=== PATIENT | female | born 1990 | race Hispanic/Latino ===

== ENCOUNTER 2020-05-10 21:00 | Emergency (ER) | payer OTHER, SELFPAY ==
--- OUTSIDE RECORDS SUMMARY | 2020-05-10 21:02 | XMS REPORT | Continuity of Care Document ---
:1990 Author Organization [facility] t Address [address] [place] [address] Care Team Providers Name Role Phone Virgen Willis DO Attending Clinician Doctor Unassigned, Name Attending Clinician Unavailable Visit, Nurse Attending Clinician Unavailable Jemal Rachel MD Attending Clinician Lazaro ANDERSONP, N Attending Clinician Rohan HOWARD Attending Clinician Caleb HOGUE, R Attending Clinician Lionel HOWARD Attending Clinician Wilder HOWARD M Attending Clinician Lab Attending Clinician Unavailable Jemal Rachel MD Admitting Clinician Rohan HOWARD Admitting Clinician Cory Hdz MD Admitting Clinician Problems This patient has no known problems. Allergies, Adverse Reactions, Alerts This patient has no known allergies or adverse reactions. Medications This patient has no known medications. Procedures This patient has no known procedures. Encounters Start End Encounter Admission Attending Care Care Encounter Source Date/Time Date/Time Type Type Clinicians Facility Department ID 2020-05-09 2020-05-09 Emergency Lazaro [facility] [id number] [id number] 08:57:00 09:51:00 Virgen Lambert 350.1.13.10 [place] 4.2.7.2.686 [place] [id number] 2020-05-09 2020-05-09 Orders Doctor BRYANNA [id number] [id number] 00:00:00 00:00:00 Only Unassigned, HUNG 350.1.13.10 [place] [facility] 4.2.7.2.686 [id number] 2020-05-08 2020-05-08 Nurse Visit, [facility] 1.2.840.114 [id number] 08:47:39 09:13:51 Visit [facility] [employer] 350.1.13.10 Nurse [facility] 4.2.7.2.686 MATER[place] [id number] & CHILD 107 [facility] 2020-05-05 2020-05-05 Hospital BRYANNA Rachel [id number] 16:05:00 17:30:00 Encounter Oscar PERSAUD 350.1.13.10 [place] 4.2.7.2.686 [id number] 2020-05-05 2020-05-05 Nurse Visit, [facility] 1.2.840.114 [id number] 10:54:37 11:22:44 Visit Rubén-[facility] [employer]NER OPERATOR 350.1.13.10 Nurse [facility] 4.2.7.2.686 MATERNAL [id number] & CHILD 107 [facility] 2020-05-04 2020-05-04 Telephone EVON Willis 1.2.840.114 [id number] 00:00:00 00:00:00 Miladys Moe [employer]NER OPERATOR 350.1.13.10 REGIONAL 4.2.7.2.686 MATERNAL [id number] & CHILD 107 [facility] 2020-05-02 2020-05-02 [facility] Mendez Madrigal 1.2.840.114 [id number] 15:14:00 16:53:00 Encounter HUNG 350.1.13.10 [place] 4.2.7.2.686 [id number] 2020-04-30 2020-04-30 Telephone Caleb DCKIM [id number] [id number] 00:00:00 00:00:00 Swethaa R [employer]NER OPERATOR 350.1.13.10 [facility] 4.2.7.2.686 MATERNAL [id number] & CHILD 107 [facility] 2020-04-28 2020-04-29 Hospital Wen Flowers 1.2.840.11 [id number] 07:16:00 19:11:00 Encounter Wilder Marie Cory PERSAUD [address].13.[address]686 [id number] 2020-04-28 2020-04-28 Orders Doctor BRYANNA 1.2.840.114 [id number] 00:00:00 00:00:00 Only Unassigned, HUNG 350.1.13.10 [place] [address].2.7.2.686 [id number] 2020-04-23 2020-04-23 [facility] [id number] 10:51:19 11:22:19 Miladys N [employer]NER OPERATOR 350.1.13.10 Visit [facility] 4.2.7.2.686 MATERNAL [id number] & CHILD 107 [facility] 2020-04-16 2020-04-16 [facility] 1.2.387.136 [id number] 15:47:04 16:17:47 Miladys N [employer]NER OPERATOR 350.1.13.10 Visit REGIONAL 4.2.7.2.686 MATERNAL [id number] & CHILD 107 [facility] 2020-04-13 2020-04-13 [facility] 1.2.840.114 [id number] 00:00:00 00:00:00 Miladys N [employer] OWNER OPERATOR 350.1.13.10 REGIONAL 4.2.7.2.686 MATERNAL [id number] & CHILD 107 [facility] 2020-04-10 2020-04-10 Laboratory Lab, [facility] 1.2.840.114 [id number] 12:46:10 15:59:53 Only Ang-Rmchp [employer] OWNER OPERATOR 350.1.13.10 REGIONAL 4.2.7.2.686 MATERNAL [id number] & CHILD 107 [facility] 2020-04-10 2020-04-10 Telephone EVON Willis 1.2.840.114 [id number] 00:00:00 00:00:00 Miladys Moe [employer]NER OPERATOR 350.1.13.10 REGIONAL 4.2.7.2.686 MATERNAL [id number] & CHILD 107 [facility] 2020-04-09 2020-04-09 Routine EVON Willis [id number] 08:00:09 08:37:59 Miladys N [employer] OWNER OPERATOR 350.1.13.10 Visit REGIONAL 4.2.7.2.686 MATERNAL [id number] & CHILD 107 [facility] 2020-04-02 2020-04-02 Abstract EVON Willis 1.2.840.114 [id number] 00:00:00 00:00:00 Miladys Moe [employer] OWNER OPERATOR 350.1.13.10 REGIONAL 4.2.7.2.686 MATERNAL [id number] & CHILD 107 [facility] 2020-04-02 2020-04-02 Orders Doctor BRYANNA 1.2.840.114 [id number] 00:00:00 00:00:00 Only Unassigned, HUNG 350.1.13.10 [place] [facility] 4.2.7.2.686 [id number] Results This patient has no known results.
[2020-05-10 21:59] LABS: Absolute Lymphocytes (CBC) 1.4 K/uL (0.7-4.9); Basophils % 0.4 % (0-1.3); Hematocrit 37.9 % (36.0-45.0); MPV 8.6 fL (7.6-11.3); RBC Red Blood Cell Count 4.25 M/uL (3.86-4.86)
[2020-05-10] MEDS ORDERED: MORPHINE 4 MG/ML SYR ONE (22:08)
[2020-05-10] MEDS ORDERED: NA CHLORIDE 0.9% 500 ML ONE (22:08)
[2020-05-10] MEDS ORDERED: ONDANSETRON 4 MG/2 ML VIAL ONE (22:08)
[2020-05-10 22:13] LABS: ALT/SGPT 22 U/L (12-78); AST/SGOT 13 U/L (15-37); Albumin 3.2 g/dL (3.4-5.0); Alkaline Phosphatase 94 U/L (45-117); BUN Blood Urea Nitrogen 19 mg/dL (7-18); Bicarbonate 21 mmol/L (21-32); Bilirubin Direct 0.2 mg/dL (0-0.2); Bilirubin Total 0.5 mg/dL (0.2-1.0); Glucose Level 105 mg/dL (74-106); Lipase 185 U/L (73-393); Potassium 3.9 mmol/L (3.5-5.1); Protein, Total 7.6 g/dL (6.4-8.2); Sodium Level 138 mmol/L (136-145)
--- NOTE | 2020-05-10 22:20 | EDPHYS ---
Physician Documentation [facility] Name: Kristin Dutta Age: 30 yrs Sex: Female : 1990 Arrival Date: 05/10/2020 Time: 21:09 Bed 20 Private MD: ED Physician Horacio Robertson HPI: 05/10 21:53 This 30 yrs old Female presents to ER via Wheelchair with complaints of Wound mh7 Check. 21:56 Patient presents to ED for recheck of: c section. The affected area is on the lower mh7 abdomen. Previous treatment: The patient was initially treated 12 day(s) ago, the care was rendered at [facility], Treatment type: The patient's original treatment included sutures, Previous recheck: few days ago. Progress: The patient reports increased dehiscence . The patient has been recently seen by a physician: [facility]. States that she had a c section 12 days ago at [facility]. States that wound has developed small areas of opening but tonight opened completely and bowel protrusion. Denies abdominal pain, vomiting, fever.. FAMILY THERAPIST: 22:02 LMP N/A - Recent rv Historical: - Allergies: 21:14 No Known Allergies; ll1 - PMHx: 21:14 Asthma; ll1 - PSHx: 21:14 ; Cholecystectomy; ll1 - Immunization history:: Flu vaccine is up to date. - Social history:: Smoking status: Patient denies any tobacco usage or history of. ROS: 21:56 Constitutional: Negative for fever, chills, and weight loss, Eyes: Negative for injury, mh7 pain, redness, and discharge, ENT: Negative for injury, pain, and discharge, Neck: Negative for injury, pain, and swelling, Cardiovascular: Negative for chest pain, palpitations, and edema, Respiratory: Negative for shortness of breath, cough, wheezing, and pleuritic chest pain, Back: Negative for injury and pain, MS/Extremity: Negative for injury and deformity, Neuro: Negative for headache, weakness, numbness, tingling, and seizure, Psych: Negative for depression, anxiety, suicide ideation, homicidal ideation, and hallucinations, Allergy/Immunology: Negative for hives, rash, and allergies, Endocrine: Negative for neck swelling, polydipsia, polyuria, polyphagia, and marked weight changes, Hematologic/Lymphatic: Negative for swollen nodes, abnormal bleeding, and unusual bruising. Exam: 21:56 Constitutional: This is a well developed, well nourished patient who is awake, alert, mh7 and in no acute distress. Head/Face: Normocephalic, atraumatic. Eyes: Pupils equal round and reactive to light, extra-ocular motions intact. Lids and lashes normal. Conjunctiva and sclera are non-icteric and not injected. Cornea within normal limits. Periorbital areas with no swelling, redness, or edema. Neck: Trachea midline, no thyromegaly or masses palpated, and no cervical lymphadenopathy. Supple, full range of motion without nuchal rigidity, or vertebral point tenderness. No Meningismus. Chest/axilla: Normal chest wall appearance and motion. Nontender with no deformity. No lesions are appreciated. Cardiovascular: Regular rate and rhythm with a normal S1 and S2. No gallops, murmurs, or rubs. Normal PMI, no JVD. No pulse deficits. Respiratory: Lungs have equal breath sounds bilaterally, clear to auscultation and percussion. No rales, rhonchi or wheezes noted. No increased work of breathing, no retractions or nasal flaring. 21:56 Back: No spinal tenderness. No costovertebral tenderness. Full range of motion. Skin: Warm, dry with normal turgor. Normal color with no rashes, no lesions, and no evidence of cellulitis. MS/ Extremity: Pulses equal, no cyanosis. Neurovascular intact. Full, normal range of motion. Neuro: Awake and alert, GCS 15, oriented to person, place, time, and situation. Cranial nerves II-XII grossly intact. Motor strength 5/5 in all extremities. Sensory grossly intact. Cerebellar exam normal. Normal gait. Psych: Awake, alert, with orientation to person, place and time. Behavior, mood, and affect are within normal limits. 21:56 Abdomen/GI: Inspection: scar(s), are noted in the suprapubic area, bowel protrusion, Bowel sounds: normal, Palpation: abdomen is soft and non-tender, in all quadrants, Rectal exam: the exam is deferred, because of patient request, Indicators: McBurney's point is not tender, Brand's sign is negative, Rovsing's sign is negative, Obturator sign is negative, Psoas sign is negative, Liver: no appreciated palpable abnormalities. Vital Signs: 21:10 BP 111 / 66; Pulse 62; Resp 16; Temp 99.0; Pulse Ox 99% ; Weight 63.5 kg; Height 5 ft. ll1 4 in. (162.56 cm); Pain 7/10; 22:03 BP 121 / 65; Pulse 76; Resp 16; Pulse Ox 98% on R/A; rv 22:34 BP 112 / 74; Pulse 60; Resp 16; Pulse Ox 97% on R/A; rv 21:10 Body Mass Index 24.03 (63.50 kg, 162.56 cm) ll1 MDM: 22:15 Differential diagnosis: wound dehiscence, bowel protrusion, herniation. Data reviewed: [facility] vital signs, nurses notes. Data interpreted: Pulse oximetry: on room air is 98 %. Interpretation: normal. Counseling: I had a detailed discussion with the patient and/or guardian regarding: the historical points, exam findings, and any diagnostic results supporting the discharge/admit diagnosis, the need to transfer to another facility, for higher level of care, initial procedure performed at outside hospital. 22:19 Patient medically screened. [facility] 05/10 21:33 Order name: Basic Metabolic Panel [facility] 05/10 21:33 Order name: CBC with Diff [facility] 05/10 21:33 Order name: Hepatic Function [facility] 05/10 21:33 Order name: Lipase [facility] 05/10 21:34 Order name: Protime (+inr) [facility] 05/10 21:34 Order name: Ptt, Activated [facility] 05/10 21:33 Order name: IV Saline Lock; Complete Time: 22:04 [facility] 05/10 21:33 Order name: Labs collected and sent; Complete Time: 22:04 [facility] 05/10 21:34 Order name: Type And Screen [facility] 05/10 21:34 Order name: Protime (+INR) EDMS Administered Medications: 21:55 Drug: NS 0.9% 1000 ml Route: IV; Rate: 125 ml/hr; Site: right forearm; rv 23:01 Follow up: IV Status: Infusion continued upon transfer rv 21:55 Drug: morphine 4 mg Route: IVP; Site: right forearm; rv 23:01 Follow up: Response: No adverse reaction; Marked relief of symptoms; Pain is decreased; rv RASS: Alert and Calm (0) 21:56 Drug: Zofran (Ondansetron) 4 mg Route: IVP; Site: right forearm; rv 23:01 Follow up: Response: No adverse reaction rv Disposition: 05/10/20 22:19 Transfer ordered to [facility]. Diagnosis is Wound Dehiscence with Bowel Protrusion, C Section. - Reason for transfer: Higher level of care. - Accepting physician is Dr. Alexander. - Condition is Stable. - Problem is new. - Symptoms are unchanged. Signatures: Dispatcher [employer] EDTaurus Estevez RN RN rv Viridiana Dupree RN RN 1 Horacio Robertson MD MD mh7 Corrections: (The following items were deleted from the chart) 23:02 22:19 05/10/2020 22:19 Transfer ordered to [facility]. Diagnosis is Wound Dehiscence rv with Bowel Protrusion, C Section. Reason for transfer: Higher level of care. Accepting physician is Dr. Alexander. Condition is Stable. Problem is new. Symptoms are unchanged. mh7
--- NOTE | 2020-05-10 22:20 | ER ---
Nurse's Notes [facility] Name: Kristin Dutta Age: 30 yrs Sex: Female : 1990 Arrival Date: 05/10/2020 Time: 21:09 Bed 20 Private MD: Diagnosis: Wound Dehiscence with Bowel Protrusion, C Section Presentation: 05/10 21:10 Chief complaint: Patient states: wound has been opening up since she got home ll1 from the hospital 2 days after . 30 min. [employer] she was having a BM, and felt liquid coming from c section area. Stated the wound opened up fully, and she thinks she saw her intestines. No fever. Coronavirus screen: Client denies travel out of the [place] in the last 14 days. At this time, the client does not indicate any symptoms associated with coronavirus-19. Ebola Screen: Patient denies travel to an Ebola-affected area in the 21 days before illness onset. Initial Sepsis Screen: Does the patient meet any 2 criteria? No. Patient's initial sepsis screen is negative. Does the patient have a suspected source of infection? Yes: Skin breakdown/wound. Risk Assessment: Do you want to hurt yourself or someone else? Patient reports no desire to harm self or others. Onset of symptoms was April 30, 2020. 21:10 Method Of Arrival: Wheelchair ll1 21:10 Acuity: MADELEINE 2 bb SHANK CUTTER: 22:02 LMP N/A - Recent rv Historical: - Allergies: 21:14 No Known Allergies; ll1 - PMHx: 21:14 Asthma; ll1 - PSHx: 21:14 ; Cholecystectomy; ll1 - Immunization history:: Flu vaccine is up to date. - Social history:: Smoking status: Patient denies any tobacco usage or history of. Screenin:02 Abuse screen: Denies threats or abuse. Denies injuries from another. Nutritional rv screening: No deficits noted. Tuberculosis screening: No symptoms or risk factors identified. Fall Risk None identified. Assessment: 21:30 General: Appears uncomfortable, Behavior is calm, cooperative. rv 21:30 Pain: Complains of pain in abdomen. Neuro: Level of Consciousness is awake, alert, rv obeys commands, Oriented to person, place, time, situation. Cardiovascular: Patient's skin is warm and dry. Respiratory: Airway is patent Respiratory effort is even, unlabored. GI: S/P SURGERY (), NOTED PART OF INTESTINE IS COMING OUT OF THE SURGICAL WOUND, COMPLAINING OF ABDOMINAL PAIN, NO ACTIVE BLEEDING NOTED. 22:03 Reassessment: MOIST DRESSING APPLIED TO THE ABDOMEN. rv Vital Signs: 21:10 BP 111 / 66; Pulse 62; Resp 16; Temp 99.0; Pulse Ox 99% ; Weight 63.5 kg; Height 5 ft. ll1 4 in. (162.56 cm); Pain 7/10; 22:03 BP 121 / 65; Pulse 76; Resp 16; Pulse Ox 98% on R/A; rv 22:34 BP 112 / 74; Pulse 60; Resp 16; Pulse Ox 97% on R/A; rv 21:10 Body Mass Index 24.03 (63.50 kg, 162.56 cm) ll1 ED Course: 21:09 Patient arrived in ED. ll1 21:13 Triage completed. ll1 21:14 Arm band placed on Patient placed in an exam room, on a stretcher. ll1 21:15 Taurus Hummel, SANKET is Primary Nurse. rv 21:28 Horacio Robertson MD is Attending Physician. [facility] 21:40 initiated a transfer with Frances Vee from [facility] Transfer Center. [facility] 21:40 Inserted saline lock: 20 gauge in right forearm, using aseptic technique. Blood rv collected. 21:40 Initial lab(s) drawn, by fl, sent to lab. rv 22:04 Patient has correct armband on for positive identification. rv 22:15 administrative approval given Frances Vee/ patient has been accepted to [place] [id number] Labor And Delivery Department/ Dr. Sorensen has accepted the patient in transfer/ report to be called to [phone]. 23:00 No provider procedures requiring assistance completed. IV is patent, with fluids rv infusing freely, Patient transferred, IV remains in place. Administered Medications: 21:55 Drug: NS 0.9% 1000 ml Route: IV; Rate: 125 ml/hr; Site: right forearm; rv 23:01 Follow up: IV Status: Infusion continued upon transfer rv 21:55 Drug: morphine 4 mg Route: IVP; Site: right forearm; rv 23:01 Follow up: Response: No adverse reaction; Marked relief of symptoms; Pain is decreased; rv RASS: Alert and Calm (0) 21:56 Drug: Zofran (Ondansetron) 4 mg Route: IVP; Site: right forearm; rv 23:01 Follow up: Response: No adverse reaction rv Outcome: 22:19 ER care complete, transfer ordered by MD. justin 23:01 Transferred by ground EMS to other acute care facility: [facility]. rv 23:01 Condition: good 23:01 Instructed on the need for transfer. 23:02 Patient left the ED. rv Signatures: Dolores Yancey RN RN bb Angela Hernandez 2 Taurus Hummel RN RN rv Viridiana Dupree RN RN ll1 Horacio Robertson MD MD mh7 Corrections: (The following items were deleted from the chart) 21:39 21:10 Acuity: MADELEINE 3 ll1 bb
[2020-05-10 22:31] LABS: Protime INR 1.08
[2020-05-10 23:13] VITALS: TEMP 99
[2020-05-10 23:16] VITALS: BP 112/74; O2SAT 97
== END 2020-05-10 23:02 | disposition short-term general hospital (02) ==
LOC: ER 21:00
DX: O90.0 Disruption of cesarean delivery wound (principal)
CPT/HCPCS: 36415; 80048; 80076; 83690; 85025; 85610; 85730; 86850; 86900; 86901; 96361; 96374; 96375; 99285; J2405; J7040